=== PATIENT | male | born 1970 | race Caucasian/White ===

== ENCOUNTER 2016-10-07 22:23 | Emergency (ER) | payer OTHER ==
[~2016-10-07] VITALS: Ht 193 cm; Wt 93.0 kg
[~2016-10-07 22:23] MED LIST: AMBIEN 5 MG TABL5 M1 OR; AVELOX 400 MG400 MG PO; COUMADIN 4 MG TA4 M1 PO; COUMADIN 5 MG TA5 M1 PO; COUMADIN7.5 MG PO; DOXEPIN HCL100 MG PO; DURAGESIC1 EAC2; FLEXERIL PO; GUAIFEN DM; HCTZ PO; HYDROCODONE-AP1 EA11 PO; LEXAPRO20 MG PO; LISINOPRIL10 MG PO; LOVENOX SQ; MORPHINE SULFAT15 M3 PO; NOHOMEMEDICATIONS; ONDANSETRON HCL4 M2 PO; OXYCONTIN CR 2020 MG PO; PERCOCET 10-321 EACH OR; PERCOCET PO; ROBAXIN 750 MG750 M1 PO; SENNA PO; SENOKOT-S1 TA1; SEROQUEL 25 MG25 M1 PO; SILVADENE20 GM TP; TRAMADOL 50 MG50 MG PO; VIBRAMYCIN 100100 M2 PO; WELLBUTRIN XL150 MG PO
[2016-10-07] MEDS ORDERED: XARELTO10 MG (22:28)
== END 2016-10-07 22:45 | disposition home or self-care (01) ==
LOC: ER 22:23
DX: K94.23 Gastrostomy malfunction (principal); Z86.711 Personal history of pulmonary embolism; Z86.718 Personal history of other venous thrombosis and embolism; Z88.0 Allergy status to penicillin; Y84.9 Medical procedure, unspecified as the cause of abnormal reaction of the patient, or of later complication, without mention of misadventure at the time of the procedure; Y92.89 Other specified places as the place of occurrence of the external cause